=== PATIENT | male | born 1965 | race African-American/Black ===

== ENCOUNTER 2022-07-17 12:00 | Day surgery (SDC) | payer OTHER ==
[2022-07-14 10:16] LABS: SARS-CoV-2 Antigen Rapid Res Negative (Negative)
[2022-07-17] MEDS ORDERED: NA CHLORIDE 0.9% 500 ML ONE (12:17)
[2022-07-17] MEDS ORDERED: LIDOCAINE HCL/PF 3.5% OPTH GEL ONE (12:43)
[2022-07-17] MEDS ORDERED: CYCLOPENTOLATE 1% OPTH 2 ML ONE (12:43)
[2022-07-17] MEDS ORDERED: Phenylephrine HCl 10 MG/ML 1 ML VIAL ONE (12:43)
[2022-07-17] MEDS ORDERED: PHENYLEPHRINE 10% OPTH 5ML OPTH ONE (13:32)
[2022-07-17] MEDS ORDERED: LIDOCAINE HCL/PF 3.5% OPTH GEL OPTH ONE (15:20)
[2022-07-17] MEDS ORDERED: BSS OPTHALMIC SOL 15 ML OPTH ONE (15:31)
[2022-07-17] MEDS ORDERED: MOXIFLOXACIN HCL 10 DROPS/ML **OR USE OPTH ONE (15:31)
[2022-07-17] MEDS ORDERED: EPINEPHRINE/PF 1 MG/ML AMP ONE (15:31)
[2022-07-17] MEDS ORDERED: POVIDONE-IODINE 5% EYE DROPS ONE (15:31)
[2022-07-17] MEDS ORDERED: BALANCED SALT IRRIG PLAIN 500 ML IRR ONE (15:31)
[2022-07-17] MEDS ORDERED: LIDOCAINE 1% MPF 2 ML AMPULE ONE (15:32)
[2022-07-17] MEDS ORDERED: FENTANYL CITR 100 MCG/2 ML ONE (16:31)
[2022-07-17] MEDS ORDERED: MIDAZOLAM HCL 2 MG/2 ML INJ ONE (16:31)
[2022-07-17 17:35] VITALS: BP 138/85; TEMP 98.4; O2SAT 100
--- NOTE | 2022-07-18 03:48 | OP ---
Date of Procedure: 07/17/2022 Surgeon: Yeni Hendricks MD Anesthesiologist: Toya Lazar CRNA and Cahrlie Coffey M.D. Preoperative Diagnosis: Combined form of cataract, left eye. Operation Performed: Phacoemulsification with intraocular lens implant, left eye. Anesthesia: Topical anesthesia, per cataract surgery. Complications: None. Description Of Procedure: In day surgery, the patient was prepped with Betadine and draped. A conju nctival incision was made in the inferior nasal quadrant with Quincy scissors. A sub-Tenon block c onsisting of a 1:1 mixture of 2% Xylocaine and 0.25% bupivacaine was placed through the conjunctival incision with a blunt cannula. A [place] balloon was placed over the eye and the patient was transferr ed to the operating room. In the operating room the patient was prepped and draped in the usual sterile fashion for ophthalmic surgery. A lid speculum was placed in the left eye. Two paracentesis sites were made superiorly and inferiorly in the limbal cornea. Viscoat was placed in the anterior chamber and a crescent blade wa s used to make a corneal groove and tunnel, and a keratome was used to enter the anterior chamber. P rovisc was placed in the anterior chamber and a 360 degree capsulotomy was performed with a cystitome . The lens was hydrodissected with BSS and rotated freely. The lens was removed with a stop and cho p technique. 4.07 phaco CDE was used to remove the lens. Residual cortex was removed with the irrig ation and aspiration. Provisc was placed in the capsular bag. A DCB00 +21.0 lens was placed in the capsular bag without complications. Irrigation and aspiration was used to remove residual viscoelast ic. The paracentesis sites were hydrated with BSS. The wound and paracentesis sites were inspected and found to be watertight. Vigamox 0.07 cc was placed intracamerally at the end of the procedure. The eye was irrigated with balanced salt solution. The eye was patched with a soft cotton patch and Rodriguez metal shield. The patient was returned to day surgery in good condition. Comments: Discharge Instructions: Mr. Olsen is discharged home in good condition and is to follow up with Dr. Hendricks in the morning. SINGH/MIYA Voice ID: [id number] Report ID: [id number]
== END 2022-07-17 17:34 | disposition home or self-care (01) ==
LOC: OR 12:00
PROVIDERS: ADMIT Ophthalmology Retina Specialist; ATTEND Ophthalmology Retina Specialist
PROC: 08RK3JZ Replacement of Left Lens with Synthetic Substitute, Percutaneous Approach (ICD-10-PCS; principal; 2022-07-17 14:30)
DX: H25.812 Combined forms of age-related cataract, left eye (principal); Z20.822 Contact with and (suspected) exposure to COVID-19; I10 Essential (primary) hypertension
CPT/HCPCS: 36415; 82947 ×2; 87811; 66984; J0171; J2250; J3010; J7040; J2370

== ENCOUNTER 2022-09-18 11:53 | Day surgery (SDC) | payer OTHER ==
[2022-09-18] MEDS ORDERED: NA CHLORIDE 0.9% 1,000 ML ONE (12:09)
[2022-09-18] MEDS ORDERED: BSS OPTHALMIC SOL 15 ML OPTH ONE (12:21)
[2022-09-18] MEDS ORDERED: TRYPAN BLUE 0.5 ML SYR OPTH ONE (12:23)
[2022-09-18] MEDS ORDERED: EPINEPHRINE/PF 1 MG/ML AMP ONE (12:23)
[2022-09-18] MEDS ORDERED: MOXIFLOXACIN HCL 0.5% 3ML OPTH OPTH ONE (12:24)
[2022-09-18] MEDS: BALANCED SALT IRRIG PLAIN 500 ML IRR ONE ×3 (13:10→14:30)
[2022-09-18] MEDS: LIDOCAINE 1% MPF 2 ML AMPULE ONE ×2 (13:11→14:28)
[2022-09-18] MEDS: DUOVISC 1 KIT OPTH ONE ×5 (13:12→15:31)
[2022-09-18] MEDS: MOXIFLOXACIN HCL 10 DROPS/ML **OR USE OPTH ONE ×2 (13:13→14:45)
[2022-09-18] MEDS ORDERED: POVIDONE-IODINE 5% EYE DROPS ONE (13:28)
[2022-09-18] MEDS ORDERED: LIDOCAINE HCL/PF 3.5% OPTH GEL ONE (13:36)
[2022-09-18] MEDS: PHENYLEPHRINE 10% OPTH 5ML ONE ×3 (13:40→13:50)
[2022-09-18] MEDS: CYCLOPENTOLATE 1% OPTH 2 ML ONE ×3 (13:40→13:50)
[2022-09-18] MEDS ORDERED: MIDAZOLAM HCL 2 MG/2 ML INJ ONE (14:02)
[2022-09-18] MEDS ORDERED: FENTANYL CITR 100 MCG/2 ML ONE (14:02)
[2022-09-18] MEDS ORDERED: TETRACAINE HCL 0.5% 4ML OPTH ONE (14:14)
[2022-09-18 15:49] VITALS: BP 131/84; TEMP 97.4; O2SAT 100
--- NOTE | 2022-09-19 01:32 | OP ---
Date of Procedure: 09/18/2022 Surgeon: Yeni Hendricks MD Anesthesiologist: Inderjit Cohen CRNA. Preoperative Diagnosis: Combined form of cataract OD (right eye). Operation Performed: Phacoemulsification with intraocular lens implant, right eye. Anesthesia: Topical anesthesia. Anesthesia per cataract surgery. Complications: None. Description Of Procedure: In the operating room the patient was prepped and draped in the usual sterile fashion for ophthalmic surgery. A lid speculum was placed in the right eye. Two paracentesis sites were made superiorly and inferiorly in the limbal cornea. Preservative free lidocaine 1% then Viscoat were placed in the anterior chamber. A keratome was used to enter the anterior chamber. A 360 degree capsulotomy was performed with a utrata forceps. The lens was hydrodissected with BSS and rotated freely. The lens was removed with a chop technique. 2.35 phaco CDE was used to remove the lens. Residual cortex was removed with the irrigation and aspiration. Provisc was placed in the capsular bag. A DCB00 +21.0 lens was placed in the capsular bag without complications. Irrigation and aspiration was used to remove residual viscoelastic. The paracentesis sites were hydrated with BSS. The wound and paracentesis sites were inspected and found to be watertight. Vigamox 0.07 cc was placed intracamerally at the end of the procedure. The eye was patched with clear shield. The patient was returned to day surgery in good condition. Comments: Discharge Instructions: Mr. Olsen is discharged to home in good condition. He is to follow up with Dr. Hendricks today and then in the morning. SINGH/MIYA Voice ID: [id number] Report ID: [id number]
== END 2022-09-18 14:16 | disposition home or self-care (01) ==
LOC: OR 11:53
PROVIDERS: ATTEND Ophthalmology Retina Specialist
PROC: 08RJ3JZ Replacement of Right Lens with Synthetic Substitute, Percutaneous Approach (ICD-10-PCS; principal; 2022-09-18 13:00)
DX: H25.811 Combined forms of age-related cataract, right eye (principal); E11.9 Type 2 diabetes mellitus without complications; H40.059 Ocular hypertension, unspecified eye
CPT/HCPCS: 82947; 66984; J0171; J2250; J3010; J7030